=== PATIENT | male | born 1960 | race Caucasian/White ===

== ENCOUNTER 2024-09-16 19:41 | Observation (INO) | payer BC, OTHER, SELFPAY ==
[2024-09-16] VITALS (25 sets, daily range): BP systolic 108–119; BP diastolic 73–99; PULSE 85–169; TEMP 36.5–36.6; O2SAT 89–99; BMI 42.4; BMI 44.4
--- NOTE | 2024-09-16 19:50 | ECG_ITS ---
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
--- NOTE | 2024-09-16 19:59 | ED_ITS ---
HPI - Chest Pain General Chief Complaint: Chest Pain Stated Complaint: Chest Pain Time Seen by Provider: 09/16/24 19:46 Source: patient Mode of arrival: walk-in Limitations: no limitations History of Present Illness HPI narrative: past history of HTN. Presents within the hour with chest pain into his back and flutter in his chest. Pain resolved enroute to the hospital and he has no pain now. felt he was short of breath but he did not think so. No nausea or light headiness. No past history of A. Fib Related Data Home Medications ?Medication ?Instructions ?Recorded ?Confirmed levothyroxine 50 mcg tablet mcg 09/16/24 lisinopril 20 tab 09/16/24 mg-hydrochlorothiazide 12.5 mg tablet omeprazole 40 mg capsule,delayed mg 09/16/24 release semaglutide 2 mg/dose (8 mg/3 mL) mg subcut 09/16/24 subcutaneous pen injector (Ozempic) Allergies Allergy/AdvReac Type Severity Reaction Status Date / Time No Known Drug Allergies Allergy Verified 09/16/24 19:57 Review of Systems ROS Status of ROS 10 or more systems reviewed and unremark able except as noted in history and below PFSH PFSH Social History Little interest or pleasure in doing things: not at all Feeling down, depressed, or hopeless: not at all Exam Constitutional Vital Signs, click to edit/add: Last Vital Signs Temp 97.7 F 09/16/24 19:52 Pulse 147 H 09/16/24 19:52 Resp 18 09/16/24 20:37 BP 119/81 09/16/24 20:19 Pulse Ox 99 09/16/24 19:52 O2 Del Method Room Air 09/16/24 19:52 Common normals: no apparent distress, oriented x3, no limitations, healthy appearing, alert and well nourished [facility] Common normals: normocephalic and head/scalp atraumatic Eye Common normals: EOMs intact bilaterally and conjunctivae normal Respiratory Common normals: normal respiratory effort, no retractions, no use of accessory muscles and clear to auscultation bilaterally Cardio Rate: tachycardic Rhythm: abnormal rhythm GI Common normals: Normal to inspection, nondistended, normoactive bowel sounds present and soft to palpation Extremity Common normals: normal to inspection and full ROM Neuro Common normals: oriented x3, moves all extremities and no focal motor deficits Psych Appearance: grossly normal Course Vital Signs Vital signs: Vital Signs Temperature 97.7 F 09/16/24 19:52 Pulse Rate 147 H 09/16/24 19:52 Respiratory Rate 19 09/16/24 19:52 Blood Pressure 119/81 09/16/24 19:52 Pulse Oximetry 99 09/16/24 19:52 Oxygen Delivery Method Room Air 09/16/24 19:52 Temperature 97.7 F 09/16/24 19:52 Pulse Rate 147 H 09/16/24 19:52 Respiratory Rate 18 09/16/24 20:37 Blood Pressure 119/81 09/16/24 20:19 Pulse Oximetry 99 09/16/24 19:52 Oxygen Delivery Method Room Air 09/16/24 19:52 MDM - Chest Pain MDM Narrative Medical decision making narrative: patient presents with chest pain that radiated into his back. pain was mild. pain resolved before he came to the ED. Found to be in A. fib with RVR. No history of of A. fib. d-dimer and troponin neg. cxray per my preliminary review is neg. Diltiazem bolus and drip ordered and rate decreased from 160s to 90- 110. BP remained WNL. Patient is feeling well. Accepted to step down unit by hospitalist . Hospitalist will order Heparin or Lovenox for patient Lab Data Labs: Lab Results 09/16/24 Range/Units 19:55 WBC 9.3 (4.0-11.0) 10^3/uL RBC 5.31 (4.70-6.10) 10^6/uL Hgb 16.9 (14.0-18.0) g/dL Hct 49.3 (42.0-54.0) % MCV 92.8 (80.0-94.0) fL MCH 31.8 (25.9-34.0) pg MCHC 34.3 (29.9-35.2) g/dL RDW 12.4 (11.0-15.0) % Plt Count 192 (150-450) 10^3/uL MPV 12.0 (9.5-13.5) fL Neut % (Auto) 67.6 (43.0-75.0) % Lymph % (Auto) 19.4 L (20.5-60.0) % [place] % (Auto) 11.2 (1.7-12.0) % Eos % (Auto) 1.0 (0.9-7.0) % Baso % (Auto) 0.5 (0.2-2.0) % Neut # (Auto) 6.3 (1.4-6.5) 10^3/uL Lymph # (Auto) 1.8 (1.2-3.8) 10^3/uL [place] # (Auto) 1.0 H (0.3-0.8) 10^3/uL Eos # (Auto) 0.1 (0.0-0.7) 10^3/uL Baso # (Auto) 0.1 (0.0-0.1) 10^3/uL Abs Immat Gran (auto) 0.03 (0.00-0.03) 10^3/uL Imm/Tot Granulo (auto) 0.3 (0.0-0.5) % D-Dimer 0.46 (<=0.59) mg/L FEU Sodium 137 (136-145) mmol/L Potassium 3.8 (3.5-5.1) mmol/L Chloride 100 (98-107) mmol/L Carbon Dioxide 29.2 (21.0-32.0) mmol/L Anion Gap 11.6 BUN 18.0 (7.0-18.0) mg/dL Creatinine 1.27 (0.70-1.30) mg/dL Est GFR ( Amer) >60 (>=60 mL/min/1.73m^2) Est GFR (Non-Af Amer) 57 L (>=60 mL/min/1.73m^2) BUN/Creatinine Ratio 14.2 Glucose 120 H (74-106) mg/dL Calcium 8.9 (8.5-10.1) mg/dL Troponin I High Sens 4.3 (4.0-76.1) pg/mL NT-Pro-B Natriuret Pep 122.0 (<=900.0) pg/mL Discharge Plan Discharge Chief Complaint: Chest Pain Clinical Impression: New onset atrial fibrillation, Chest pain Patient Disposition: Admitted as Observation
[2024-09-16 20:07] LABS: Basophils Absolute Auto 0.1 10^3/uL (0.0-0.1); Basophils Percent Auto 0.5 % (0.2-2.0); Eosinophils Absolute Auto 0.1 10^3/uL (0.0-0.7); Hematocrit 49.3 % (42.0-54.0); Hemoglobin 16.9 g/dL (14.0-18.0); Immature Granulocytes Abs Auto 0.03 10^3/uL (0.00-0.03); Immature Granulocytes Pct Auto 0.3 % (0.0-0.5); Lymphocytes Absolute Auto 1.8 10^3/uL (1.2-3.8); Lymphocytes Percent Auto 19.4 % (20.5-60.0); Mean Corpuscular HGB Conc 34.3 g/dL (29.9-35.2); Mean Corpuscular Hemoglobin 31.8 pg (25.9-34.0); Mean Corpuscular Volume 92.8 fL (80.0-94.0); Monocytes Percent Auto 11.2 % (1.7-12.0); Neutrophils Absolute Auto 6.3 10^3/uL (1.4-6.5); Neutrophils Percent Auto 67.6 % (43.0-75.0); Platelet Count 192 10^3/uL (150-450); Red Blood Count 5.31 10^6/uL (4.70-6.10); Red Cell Distribution Width 12.4 % (11.0-15.0); White Blood Count 9.3 10^3/uL (4.0-11.0)
[2024-09-16] MEDS: dilTIAZem HCL 125 MG in 0.9 % SODIUM CHLORIDE 100 ML 10 MG IV (20:19)
[2024-09-16] MEDS: DILTIAZEM HCL 25 MG/5 ML VIAL 15 MG IV (20:19)
[2024-09-16 20:30] LABS: Anion Gap 11.6; BUN Creatinine Ratio 14.2; Calcium 8.9 mg/dL (8.5-10.1); Carbon Dioxide 29.2 mmol/L (21.0-32.0); Chloride 100 mmol/L (98-107); Estimated GFR (African America >60 (>=60 mL/min/1.73m^2); Estimated GFR (Non-African Ame 57 (>=60 mL/min/1.73m^2); Glucose 120 mg/dL (74-106); Potassium 3.8 mmol/L (3.5-5.1); Sodium 137 mmol/L (136-145); Troponin I High Sensitivity 4.3 pg/mL (4.0-76.1)
[2024-09-16 21:03] LABS: D Dimer 0.46 mg/L FEU (<=0.59)
[2024-09-16 22:40] LABS: Magnesium 1.9 mg/dL (1.8-2.4)
[2024-09-16 22:41] LABS: Free T4 1.11 ng/dL (0.76-1.46)
[2024-09-17] VITALS (63 sets, daily range): BP systolic 83–126; BP diastolic 57–84; PULSE 75–116; TEMP 36.6–37.2; O2SAT 93–98
[2024-09-17 00:03] LABS: Basophils Absolute Auto 0.1 10^3/uL (0.0-0.1); Basophils Percent Auto 0.6 % (0.2-2.0); Eosinophils Absolute Auto 0.1 10^3/uL (0.0-0.7); Eosinophils Percent Auto 0.9 % (0.9-7.0); Hematocrit 46.8 % (42.0-54.0); Hemoglobin 16.4 g/dL (14.0-18.0); Immature Granulocytes Abs Auto 0.04 10^3/uL (0.00-0.03); Immature Granulocytes Pct Auto 0.4 % (0.0-0.5); Lymphocytes Absolute Auto 1.7 10^3/uL (1.2-3.8); Mean Corpuscular Hemoglobin 32.2 pg (25.9-34.0); Mean Corpuscular Volume 91.9 fL (80.0-94.0); Mean Platelet Volume 12.3 fL (9.5-13.5); Monocytes Absolute Auto 1.4 10^3/uL (0.3-0.8); Monocytes Percent Auto 12.9 % (1.7-12.0); Neutrophils Absolute Auto 7.2 10^3/uL (1.4-6.5); Neutrophils Percent Auto 69.2 % (43.0-75.0); Platelet Count 190 10^3/uL (150-450); Red Blood Count 5.09 10^6/uL (4.70-6.10); Red Cell Distribution Width 12.3 % (11.0-15.0); White Blood Count 10.5 10^3/uL (4.0-11.0)
[2024-09-17 00:19] LABS: INR 1.11; Partial Thromboplastin Time 30.5 sec (22.3-36.2); Prothrombin Time 11.6 sec (9.0-11.6)
[2024-09-17] MEDS: HEPARIN SODIUM,PORCINE/D5W 25,000 UNIT/500 ML IV.SOLN 19.758 UNIT IV (02:25)
[2024-09-17 06:08] LABS: Basophils Absolute Auto 0.1 10^3/uL (0.0-0.1); Basophils Percent Auto 0.6 % (0.2-2.0); Eosinophils Absolute Auto 0.2 10^3/uL (0.0-0.7); Eosinophils Percent Auto 1.8 % (0.9-7.0); Hematocrit 46.5 % (42.0-54.0); Hemoglobin 15.8 g/dL (14.0-18.0); Immature Granulocytes Abs Auto 0.03 10^3/uL (0.00-0.03); Immature Granulocytes Pct Auto 0.4 % (0.0-0.5); Lymphocytes Absolute Auto 2.3 10^3/uL (1.2-3.8); Lymphocytes Percent Auto 26.7 % (20.5-60.0); Mean Corpuscular Hemoglobin 31.4 pg (25.9-34.0); Mean Corpuscular Volume 92.4 fL (80.0-94.0); Mean Platelet Volume 12.2 fL (9.5-13.5); Monocytes Absolute Auto 1.1 10^3/uL (0.3-0.8); Monocytes Percent Auto 12.6 % (1.7-12.0); Neutrophils Absolute Auto 4.9 10^3/uL (1.4-6.5); Neutrophils Percent Auto 57.9 % (43.0-75.0); Platelet Count 171 10^3/uL (150-450); Red Blood Count 5.03 10^6/uL (4.70-6.10); Red Cell Distribution Width 12.5 % (11.0-15.0); White Blood Count 8.5 10^3/uL (4.0-11.0)
[2024-09-17 06:36] LABS: Alanine Aminotransferase 18 U/L (16-63); Albumin Globulin Ratio 0.9; Albumin Level 3.3 g/dL (3.4-5.0); Alkaline Phosphatase 48 U/L (46-116); Anion Gap 11.7; Aspartate Amino Transferase 15 U/L (15-37); BUN Creatinine Ratio 17.2; Bilirubin Total 0.6 mg/dL (0.2-1.0); Calcium 8.6 mg/dL (8.5-10.1); Carbon Dioxide 28.1 mmol/L (21.0-32.0); Chloride 101 mmol/L (98-107); Estimated GFR (African America >60 (>=60 mL/min/1.73m^2); Estimated GFR (Non-African Ame >60 (>=60 mL/min/1.73m^2); Globulin 3.5 g/dL; Glucose 112 mg/dL (74-106); Potassium 3.8 mmol/L (3.5-5.1); Sodium 137 mmol/L (136-145); Total Protein 6.8 g/dL (6.4-8.2)
--- NOTE | 2024-09-17 07:04 | CA_ITS ---
Patient Name: ROBBIN ARTEAGA MR#: [id number] : 1960 Exam Date: 09/17/2024 Ordering Doctor: SHAIKH Dara GUTIERREZ . ECHOCARDIOGRAM REPORT PROCEDURE: CA ECHO DOPPLER COMPLETE INDICATIONS: New onset Afib, hypertension COMPARISON: None. DESCRIPTION: COMPLETE ECHOCARDIOGRAM Real-time transthoracic echocardiography with 2D, M-mode, spectral and color flow Doppler performed. QUALITY: Technical quality was adequate. LEFT VENTRICLE: Normal chamber size. Borderline left ventricular hypertrophy. Normal systolic function. LV EF: Normal left ventricular ejection fraction, (>55%). DIASTOLIC: Not adequately assessed due to heart rhythm. ATRIAL SEPTUM: LEFT ATRIUM: Normal chamber size. RIGHT ATRIUM: Normal chamber size. RIGHT VENTRICLE: Normal chamber size. Normal right ventricular systolic function. TRICUSPID VALVE: Normal mobility and thickness. No stenosis with no regurgitation. MITRAL VALVE: Normal mobility and thickness. No evidence of mitral valve stenosis. There is no mitral annular calcification. No mitral regurgitation. AORTIC VALVE: Normal trileaflet appearance. Thickened aortic valve. Normal leaflet mobility. No evidence of aortic valve stenosis. No aortic regurgitation. AORTIC ROOT: Normal diameter and appearance. PULMONIC VALVE: Not well visualized. No stenosis. No regurgitation. PERICARDIUM: No evidence of pericardial effusion. IVC: IVC is dilated (2.3 cm), does not fully collapse. PLEURA: CONCLUSION: 1. Normal left ventricular size and systolic function. Estimated LVEF is 55 to 60%. 2. Normal right ventricular size and systolic function. 3. No significant valvular dysfunction. 4. The patient appears to be in atrial fibrillation during the exam. Adult Echocardiography Procedure Report Left Ventricle LVEDD (3.7 - 5.6 cm): 4.65 cm LVESD (2.2 - 4.0 cm): 2.67 cm LVIVS thickness (0.6 - 1.2 cm): 1.12 cm LVPW thickness (0.5 - 1.0 cm): 0.93 cm LVOT Max Gradient: 2.04 mm[Hg], 1.22 mm[Hg] LVOT Area (cm2): 0.63 m/s Peak Velocity (LVOT): 0.71 m/s, 0.55 m/s LVOT Diameter 2.07 cm Left Atrium LA Volume Index (2D A2C): 22.92 ml/m2 Left Atrium Systolic Dimension: 3.80 cm Mitral Valve Mitral Valve E-Wave Peak Velocity: 0.61 m/s Right Ventricle Aorta AO Root Diam: 2.96 cm Aortic Valve AoV Area (Peak Telly): 2.45 cm2, 2.84 cm2, 2.24 cm2 Peak Velocity(Antegrade Flow): 0.84 m/s, 0.83 m/s, 0.93 m/s Peak Gradient(Antegrade Flow): 2.85 mm[Hg], 2.75 mm[Hg], 3.49 mm[Hg] Tricuspid Valve Pulmonic Valve Peak Velocity: 0.61 m/s Peak Gradient: 1.22 mm[Hg], 1.74 mm[Hg] Right Atrium Right Atrium Systolic Pressure: 54.16 ml, 54.16 ml Dictated by: Nathan Watkins M.D. on 09/17/2024 at 16:36 Approved by: Nathan Watkins M.D. on 09/17/2024 at 16:38
[2024-09-17] MEDS: LEVOTHYROXINE SODIUM 25 MCG TABLET 50 MCG PO (08:12)
[2024-09-17] MEDS: PANTOPRAZOLE SODIUM 40 MG TABLET.DR PO (08:13)
[2024-09-17] MEDS: METOPROLOL TARTRATE 25 MG TABLET PO ×2 (08:13→22:29)
[2024-09-17 09:20] LABS: PTT Heparin Monitor 33.2 sec (43.5-61.5)
--- NOTE | 2024-09-17 11:18 | CM.NOTE ---
Rounds made with Dr. Wooten, pt will have cardiac echo and cardiology consult today for further recommendations. Dr. Wooten discussed with pt new diagnosis of A-fib and need for P.O Eliquis at discharge. Pt is not rate controlled and off Cardizem drip. Possible discharge this afternoon.
[2024-09-17 11:57] LABS: TSH W/ REFLEX FT4 0.022 uIU/mL (0.358-3.740); Troponin I High Sensitivity 5.5 pg/mL (4.0-76.1)
[2024-09-17 12:21] LABS: Free T4 1.18 ng/dL (0.76-1.46)
--- NOTE | 2024-09-17 12:48 | P.CACN_ITS ---
History of Present Illness History of Present Illness Consult date: 09/17/24 Requesting physician: Shaikh Je Consult reason: chest pain and atrial fibrillation Chief complaint: A-Fib (new) cardizem drip Narrative: 64-year-old man with a history of hypertension, obstructive sleep apnea treated with CPAP, and hypothyroidism on replacement therapy who presented to the hospital with chest discomfort. [facility] AT [facility] Medical History (Updated 09/16/24 @ 22:49 by Mary Garcia) Bleeding ulcer ?K28.4 - Chronic or unspecified gastrojejunal ulcer with hemorrhage (ICD-10) Hypertension ?I10 - Essential (primary) hypertension (ICD-10) Kidney stones ?N20.0 - Calculus of kidney (ICD-10) Surgical History (Updated 09/16/24 @ 22:49 by Mary Garcia) H/O spinal fusion ?Z98.1 - Arthrodesis status (ICD-10) History of cholecystectomy ?Z90.49 - Acquired absence of other specified parts of digestive tract (ICD- 10) Family History (Updated 09/16/24 @ 23:00 by Mary Garcia) Nephew Family history of cancer Grandmother Family history of diabetes mellitus Father Family history of stroke Other Family history of hypertension Social History (Updated 09/16/24 @ 23:01 by Mary Garcia) Within the past year, how often did you have a drink containing alcohol: never Score interpretation: A score less than 4 is consistent with normal alcohol consumption. 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 level of school completed/degree received: Master's degree Are you now , , , , never or living with a partner: In a typical week, how many times do you talk on the telephone with family, friends, or neighbors: 3 or more times per week How often do you get together with friends or relatives: 3 or more times per week How often do you attend mandaeism or jehovah's witness services: never Little interest or pleasure in doing things: not at all Feeling down, depressed, or hopeless: not at all Feel stressed/tense/nervous/anxious/difficulty sleeping: not at all Meds Home Medications and Allergies Home Medications ?Medication ?Instructions ?Recorded ?Confirmed ?Type levothyroxine 50 mcg tablet 50 mcg PO DAILY 09/16/24 0 09/16/24 History lisinopril 20 1 tab PO DAILY 09/16/24 05/0 10/06 History mg-hydrochlorothiazide 12.5 mg tablet omeprazole 40 mg capsule,delayed 40 mg PO DAILY 09/16/24 History release semaglutide 2 mg/dose (8 mg/3 mL) 2 mg subcut .WEEKLY 09/16/24 09/17/24 History subcutaneous pen injector (Ozempic) Allergies Allergy/AdvReac Type Severity Reaction Status Date / Time No Known Drug Allergies Allergy Verified 09/16/24 19:57 Exam Constitutional Vital Signs, click to edit/add: Last Vital Signs Temp 98 F 09/17/24 11:54 Pulse 91 H 09/17/24 11:55 Resp 16 09/17/24 11:54 BP 103/73 09/17/24 11:54 Pulse Ox 96 09/17/24 11:54 O2 Del Method Room Air 09/17/24 11:54 Results Labs and Meds Lab results: Cardiac Enzymes 09/17/24 Range/Units 06:01 AST 15 (15-37) U/L Coagulation 09/16/24 Range/Units 23:50 PT 11.6 (9.0-11.6) sec APTT 30.5 (22.3-36.2) sec CBC 09/16/24 09/16/24 09/17/24 Range/Units 19:55 23:52 06:01 WBC 9.3 10.5 8.5 (4.0-11.0) 10^3/uL RBC 5.31 5.09 5.03 (4.70-6.10) 10^6/uL Hgb 16.9 16.4 15.8 (14.0-18.0) g/dL Hct 49.3 46.8 46.5 (42.0-54.0) % Plt Count 192 190 171 (150-450) 10^3/uL Neut # (Auto) 6.3 7.2 H 4.9 (1.4-6.5) 10^3/uL Lymph # (Auto) 1.8 1.7 2.3 (1.2-3.8) 10^3/uL [place] # (Auto) 1.0 H 1.4 H 1.1 H (0.3-0.8) 10^3/uL Eos # (Auto) 0.1 0.1 0.2 (0.0-0.7) 10^3/uL Baso # (Auto) 0.1 0.1 0.1 (0.0-0.1) 10^3/uL Comprehensive Metabolic Panel 09/16/24 09/17/24 Range/Units 19:55 06:01 Sodium 137 137 (136-145) mmol/L Potassium 3.8 3.8 (3.5-5.1) mmol/L Chloride 100 101 (98-107) mmol/L Carbon Dioxide 29.2 28.1 (21.0-32.0) mmol/L BUN 18.0 16.0 (7.0-18.0) mg/dL Creatinine 1.27 0.93 (0.70-1.30) mg/dL Glucose 120 H 112 H (74-106) mg/dL Calcium 8.9 8.6 (8.5-10.1) mg/dL AST 15 (15-37) U/L ALT 18 (16-63) U/L Alkaline Phosphatase 48 (46-116) U/L Total Protein 6.8 (6.4-8.2) g/dL Albumin 3.3 L (3.4-5.0) g/dL Intake and Output 09/16/24 09/17/24 09/17/24 23:59 07:59 15:59 Intake Total 50.659 / 50.659 187.500 / 187.500 Balance 50.659 / 50.659 187.500 / 187.500 Intake: IV 50.659 / 50.659 187.500 / 187.500 Heparin Sodium,Porcine/D5w 25, 0.659 / 0.659 152.667 / 152.667 000 unit In 500 ml @ 6.6 UNITS/ KG/HR 19.758 mls/hr IV Q24H [facility] Rx#:[id number] dilTIAZem HCL 125 mg In 0.9 % 50 / 50 34.833 / 34.833 Sodium Chloride 100 ml @ 10 MG/ HR 10 mls/hr IV TITR JOL[facility]A Rx#: [id number] Other: Weight 157 kg
--- NOTE | 2024-09-17 12:49 | P.CACN_ITS ---
History of Present Illness History of Present Illness Consult date: 09/17/24 Requesting physician: Shaikh Je Consult reason: chest pain and atrial fibrillation Chief complaint: A-Fib (new) cardizem drip Narrative: 64-year-old with a history of hypertension, obstructive sleep apnea, hypothyroidism on replacement therapy. Presents within the hour with chest pain into his back and flutter in his chest. Pain resolved enroute to the hospital and he has no pain now. felt he was short of breath but he did not think so. No nausea or light headiness. No past history of A. Fib Patient admits to having episodes like this in the past that were not as intense that he did not seek medical attention for. He noted chest discomfort radiating to the interscapular area associated with palpitations. He was found to be in atrial fibrillation with rapid ventricular response. He was started on IV Cardizem drip which helped control his rate however he remains in atrial fibrillation. Anticoagulation was started and a discussion was held regarding discharge and follow-up as an outpatient. When I saw the patient, he was relatively asymptomatic. He still has some ache he describes in the back. He is unaware of palpitations. He denies lightheadedness or dizziness. Past medical history: Hypertension, obstructive sleep apnea, hypothyroidism Social history: Used to drink in his younger years. If he drinks 1 or 2 drinks a month now that his most. He does not smoke. He denies illicit drug use. He denies [id number] decongestions. 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 Family history: His father has a history of atrial fibrillation. Review of Systems ROS Status of ROS 10 or more systems reviewed and unremark able except as noted in history and below [facility] Medical History (Updated 09/17/24 @ 12:58 by Josy Gann MD) Bleeding ulcer ?K28.4 - Chronic or unspecified gastrojejunal ulcer with hemorrhage (ICD-10) Hypertension ?I10 - Essential (primary) hypertension (ICD-10) Kidney stones ?N20.0 - Calculus of kidney (ICD-10) Surgical History (Updated 09/16/24 @ 22:49 by Mary Garcia) H/O spinal fusion ?Z98.1 - Arthrodesis status (ICD-10) History of cholecystectomy ?Z90.49 - Acquired absence of other specified parts of digestive tract (ICD- 10) Family History (Updated 09/16/24 @ 23:00 by Mary Garcia) Nephew Family history of cancer Grandmother Family history of diabetes mellitus Father Family history of stroke Other Family history of hypertension Social History (Updated 09/16/24 @ 23:01 by Mary Garcia) Within the past year, how often did you have a drink containing alcohol: never Score interpretation: A score less than 4 is consistent with normal alcohol consumption. 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 level of school completed/degree received: Master's degree Are you now , , , , never or living with a partner: In a typical week, how many times do you talk on the telephone with family, friends, or neighbors: 3 or more times per week How often do you get together with friends or relatives: 3 or more times per week How often do you attend bahai or confucianism services: never Little interest or pleasure in doing things: not at all Feeling down, depressed, or hopeless: not at all Feel stressed/tense/nervous/anxious/difficulty sleeping: not at all Meds Home Medications and Allergies Home Medications ?Medication ?Instructions ?Recorded ?Confirmed ?Type levothyroxine 50 mcg tablet 50 mcg PO DAILY 09/16/24 0 09/16/24 History lisinopril 20 1 tab PO DAILY 09/16/24 05/10/06 History mg-hydrochlorothiazide 12.5 mg tablet omeprazole 40 mg capsule,delayed 40 mg PO DAILY 09/16/24 History release semaglutide 2 mg/dose (8 mg/3 mL) 2 mg subcut .WEEKLY 09/16/24 09/17/24 History subcutaneous pen injector (Ozempic) Allergies Allergy/AdvReac Type Severity Reaction Status Date / Time No Known Drug Allergies Allergy Verified 09/16/24 19:57 Exam Constitutional Vital Signs, click to edit/add: Last Vital Signs Temp 98 F 09/17/24 11:54 Pulse 91 H 09/17/24 11:55 Resp 16 09/17/24 11:54 BP 103/73 09/17/24 11:54 Pulse Ox 96 09/17/24 11:54 O2 Del Method Room Air 09/17/24 11:54 Documenting provider has reviewed patient's vital signs: yes Common normals: no apparent distress and average body habitus (Obese) General appearance: cooperative (Appears a little agitated with the plan to transfer) and comfortable Nutritional appearance: obese Orientation/consciousness: Yes awake, Yes oriented to person, Yes oriented to place and Yes oriented to time HENMO Common normals: normocephalic Head and scalp: normal to inspection Eye Common normals: EOMs intact bilaterally and conjunctivae normal (Mild conjunctival redness) General eye: normal appearance of both eyes Chest Common normals: inspection of chest normal Respiratory Common normals: normal respiratory effort Effort & inspection: able to speak in complete sentences Auscultation: clear to auscultation bilaterally Cardio Other: Rate and rhythm are irregularly irregular No significant murmurs appreciated Neuro Common normals: oriented x3 Sensorium/orientation: awake, alert, oriented to person, oriented to place and oriented to time Results Labs and Meds Lab results: Cardiac Enzymes 09/17/24 Range/Units 06:01 AST 15 (15-37) U/L Coagulation 09/16/24 Range/Units 23:50 PT 11.6 (9.0-11.6) sec APTT 30.5 (22.3-36.2) sec CBC 09/16/24 09/16/24 09/17/24 Range/Units 19:55 23:52 06:01 WBC 9.3 10.5 8.5 (4.0-11.0) 10^3/uL RBC 5.31 5.09 5.03 (4.70-6.10) 10^6/uL Hgb 16.9 16.4 15.8 (14.0-18.0) g/dL Hct 49.3 46.8 46.5 (42.0-54.0) % Plt Count 192 190 171 (150-450) 10^3/uL Neut # (Auto) 6.3 7.2 H 4.9 (1.4-6.5) 10^3/uL Lymph # (Auto) 1.8 1.7 2.3 (1.2-3.8) 10^3/uL [place] # (Auto) 1.0 H 1.4 H 1.1 H (0.3-0.8) 10^3/uL Eos # (Auto) 0.1 0.1 0.2 (0.0-0.7) 10^3/uL Baso # (Auto) 0.1 0.1 0.1 (0.0-0.1) 10^3/uL Comprehensive Metabolic Panel 09/16/24 09/17/24 Range/Units 19:55 06:01 Sodium 137 137 (136-145) mmol/L Potassium 3.8 3.8 (3.5-5.1) mmol/L Chloride 100 101 (98-107) mmol/L Carbon Dioxide 29.2 28.1 (21.0-32.0) mmol/L BUN 18.0 16.0 (7.0-18.0) mg/dL Creatinine 1.27 0.93 (0.70-1.30) mg/dL Glucose 120 H 112 H (74-106) mg/dL Calcium 8.9 8.6 (8.5-10.1) mg/dL AST 15 (15-37) U/L ALT 18 (16-63) U/L Alkaline Phosphatase 48 (46-116) U/L Total Protein 6.8 (6.4-8.2) g/dL Albumin 3.3 L (3.4-5.0) g/dL Intake and Output 09/16/24 09/17/24 09/17/24 23:59 07:59 15:59 Intake Total 50.659 / 50.659 187.500 / 187.500 Balance 50.659 / 50.659 187.500 / 187.500 Intake: IV 50.659 / 50.659 187.500 / 187.500 Heparin Sodium,Porcine/D5w 25, 0.659 / 0.659 152.667 / 152.667 000 unit In 500 ml @ 6.6 UNITS/ KG/HR 19.758 mls/hr IV Q24H [facility] Rx#:[id number] dilTIAZem HCL 125 mg In 0.9 % 50 / 50 34.833 / 34.833 Sodium Chloride 100 ml @ 10 MG/ HR 10 mls/hr IV TITR [facility] Rx#: [id number] Other: Weight 157 kg Imaging and Cardiology Echo: pending ECG results: report reviewed EKG Interpretation ECG shows: atrial fibrillation Assessment and Plan Assessment and Plan (1) Chest pain: Qualifiers: Chest pain type: unspecified Qualified Code(s): R07.9 - Chest pain, unspecified (2) New onset atrial fibrillation: (3) Hypertension: Qualifiers: Hypertension type: primary hypertension Qualified Code(s): I10 - Essential (primary) hypertension (4) SABIHA (obstructive sleep apnea): (5) Obesity: Qualifiers: Obesity type: unspecified obesity type Obesity classification: adult class 3 (BMI >= 40) Serious obesity comorbidity presence: with serious comorbidity Body mass index: BMI 40.0-44.9 Qualified Code(s): E66.813 - Obesity, class 3; Z68.41 - Body mass index [BMI] 40.0-44.9, adult (6) Hypothyroidism: Qualifiers: Hypothyroidism type: other Qualified Code(s): E03.8 - Other specified hypothyroidism (7) Family history of coronary artery disease: Plan 1. Routine labs; trend troponins, BMP, electrolytes, CBC and correct as feasible 2. A complete echocardiogram has been completed; results pending 3. Continue telemetry 4. Anticoagulation; I would recommend transitioning to IV heparin in anticipation of invasive procedures 5. Rate control; IV Cardizem drip seem to work appropriately, this can be restarted as needed 6. Rhythm control; since this is the first episode of symptomatic, atrial fibrillation, I explained the rationale behind cardioversion. I would recommend transfer to [facility] and a DAMIAN guided cardioversion. We discussed therapeutic options should cardioversion not succeed or the patient reverted back into atrial fibrillation; I described the potential for antiarrhythmic drug therapy plus or minus consideration for ablation in the future. 7. Depending on the results of his echo/DAMIAN, and his symptoms, he may need an ischemic workup. He has a plethora of risk factors for ischemic heart disease. 8. Treat noncardiac comorbidities as clinically appropriate. I had a long discussion with the patient and his explaining my recommendations. Please let us know how we can help facilitate transfer. Thank you for the consult. Josy Gann MD [facility] Cardiovascular Medicine
--- NOTE | 2024-09-17 13:52 | P.HP_ITS ---
HPI H&P: HPI History of Present Illness Chief complaint: A-Fib (new) cardizem drip Narrative: 64-year-old male with past medical history of essential hypertension, sleep apnea presented to ED with midsternal chest discomfort, heart palpitations that started suddenly while he was resting at home. He also noted mild shortness of breath with that. Workup in ED revealed A-fib with RVR. Patient was started on IV Cardizem drip and admitted overnight to stepdown unit. Patient has no known prior history of A-fib. He denies alcohol use, excessive coffee intake, drug use and reports compliance with his CPAP. Upon evaluation in the morning, he was weaned off Cardizem drip and started on p.o. Lopressor. He remains in A-fib but his rate is well-controlled on p.o. Lopressor. Consulted cardiology who recommended [facility] cardioversion for new onset A-fib. Unfortunately, our facility is unable to do cardioversion for which he will need to be transferred out to [facility]. We are waiting for patient to decide and get back to us. Echocardiogram was ordered to assess cardiac structure and is still pending. He denies chest pain, shortness of breath currently. Opioid HPI Opioid Management Most Recent Pain and Opioid Data: Last Pain Scale 0 09/16/24, 20:06 Last Pain Assessment Today, 00:04 Last ED Pain Assessment 09/16/24, 20:06 Last ORT Total Score 0 09/16/24, 23:08 Last ORT Risk Category Low Risk 09/16/24, 23:08 Review of Systems ROS Status of ROS 10 or more systems reviewed and unremark able except as noted in history and below [facility] Medical History (Updated 09/17/24 @ 12:58 by Josy Gann MD) Bleeding ulcer ?K28.4 - Chronic or unspecified gastrojejunal ulcer with hemorrhage (ICD-10) Hypertension ?I10 - Essential (primary) hypertension (ICD-10) Kidney stones ?N20.0 - Calculus of kidney (ICD-10) Surgical History (Updated 09/16/24 @ 22:49 by Mary Garcia) H/O spinal fusion ?Z98.1 - Arthrodesis status (ICD-10) History of cholecystectomy ?Z90.49 - Acquired absence of other specified parts of digestive tract (ICD- 10) Family History (Updated 09/16/24 @ 23:00 by Mary Garcia) Nephew Family history of cancer Grandmother Family history of diabetes mellitus Father Family history of stroke Other Family history of hypertension Social History (Updated 09/16/24 @ 23:01 by Mary Garcia) Within the past year, how often did you have a drink containing alcohol: never Score interpretation: A score less than 4 is consistent with normal alcohol consumption. 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 level of school completed/degree received: Master's degree Are you now , , , , never or living with a partner: In a typical week, how many times do you talk on the telephone with family, friends, or neighbors: 3 or more times per week How often do you get together with friends or relatives: 3 or more times per week How often do you attend sikhism or hindu services: never Little interest or pleasure in doing things: not at all Feeling down, depressed, or hopeless: not at all Feel stressed/tense/nervous/anxious/difficulty sleeping: not at all Meds Home Medications and Allergies Home Medications ?Medication ?Instructions ?Recorded ?Confirmed ?Type levothyroxine 50 mcg tablet 50 mcg PO DAILY 09/16/24 0 09/16/24 History lisinopril 20 1 tab PO DAILY 09/16/24 0510/06 History mg-hydrochlorothiazide 12.5 mg tablet omeprazole 40 mg capsule,delayed 40 mg PO DAILY 09/16/24 History release semaglutide 2 mg/dose (8 mg/3 mL) 2 mg subcut .WEEKLY 09/16/24 09/17/24 History subcutaneous pen injector (Ozempic) Allergies Allergy/AdvReac Type Severity Reaction Status Date / Time No Known Drug Allergies Allergy Verified 09/16/24 19:57 Exam Constitutional Vital Signs, click to edit/add: Last Vital Signs Temp 98 F 09/17/24 11:54 Pulse 91 H 09/17/24 11:55 Resp 16 09/17/24 11:54 BP 103/73 09/17/24 11:54 Pulse Ox 96 09/17/24 11:54 O2 Del Method Room Air 09/17/24 11:54 Documenting provider has reviewed patient's vital signs: yes Common normals: no apparent distress and oriented x3 General appearance: cooperative Nutritional appearance: obese HENMT Common normals: normocephalic and head/scalp atraumatic Head and scalp: normocephalic and atraumatic Eye Common normals: conjunctivae normal and no scleral icterus Conjunctiva: conjunctiva(e) normal Respiratory Common normals: normal respiratory effort and clear to auscultation bilaterally Effort & inspection: able to speak in complete sentences Auscultation: clear to auscultation bilaterally Cardio Common normals: regular rate, S1 normal heart sound and S2 normal heart sound Rate: regular rate Rhythm: abnormal rhythm Heart sounds: S1 normal and S2 normal GI Common normals: Normal to inspection, nondistended, normoactive bowel sounds present, soft to palpation, non-tender and no hepatosplenomegaly Palpation: soft and no hepatosplenomegaly Extremity Common normals: no clubbing, cyanosis or edema Neuro Common normals: oriented x3, moves all extremities and no focal motor deficits Psych Common normals: mental status grossly normal, denies hallucinations, denies homicidal ideation and denies suicidal ideation Results Labs Labs: Short CBC 09/16/24 09/16/24 09/17/24 Range/Units 19:55 23:52 06:01 WBC 9.3 10.5 8.5 (4.0-11.0) 10^3/uL Hgb 16.9 16.4 15.8 (14.0-18.0) g/dL Hct 49.3 46.8 46.5 (42.0-54.0) % Plt Count 192 190 171 (150-450) 10^3/uL BMP 09/16/24 09/17/24 19:55 06:01 Sodium 137 137 Potassium 3.8 3.8 Chloride 100 101 Carbon Dioxide 29.2 28.1 BUN 18.0 16.0 Creatinine 1.27 0.93 Glucose 120 H 112 H Calcium 8.9 8.6 Liver Function 09/17/24 Range/Units 06:01 Total Bilirubin 0.6 (0.2-1.0) mg/dL AST 15 (15-37) U/L ALT 18 (16-63) U/L Alkaline Phosphatase 48 (46-116) U/L Albumin 3.3 L (3.4-5.0) g/dL Assessment and Plan Assessment and Plan (1) Chest pain: Assessment and Plan: Likely due to Rapid afib. Resolved. Trop negative. ECHO pending. Qualifiers: Chest pain type: unspecified Qualified Code(s): R07.9 - Chest pain, unspecified (2) New onset atrial fibrillation: Assessment and Plan: New onset Afib. Rate controlled now. Cardizem drip as needed. Started on PO Lopressor. ECHO pending. (3) Hypertension: Assessment and Plan: Hold HCTZ/Lisinopril for now Qualifiers: Hypertension type: primary hypertension Qualified Code(s): I10 - Essential (primary) hypertension (4) SABIHA (obstructive sleep apnea): Assessment and Plan: Reports compliance with CPAP (5) Obesity: Assessment and Plan: on Ozempic for weight loss. Qualifiers: Obesity type: unspecified obesity type Obesity classification: adult class 3 (BMI >= 40) Serious obesity comorbidity presence: with serious comorbidity Body mass index: BMI 40.0-44.9 Qualified Code(s): E66.813 - Obesity, class 3; Z68.41 - Body mass index [BMI] 40.0-44.9, adult (6) Hypothyroidism: Assessment and Plan: TSH low, indicating levothyroxine dose is too high for him. Switch to 25 mcg daily. Qualifiers: Hypothyroidism type: other Qualified Code(s): E03.8 - Other specified hypothyroidism (7) Family history of coronary artery disease: Assessment and Plan: Decision to pursue work up for underlying ischemic heart disease as inpatient based on ECHO. Plan cw Lopressor for Afib. Off of cardizem drip, will use as needed. IV heparin for stroke px. Cardiology recommending transfer to [facility] for [facility] Cardioversion. Patient thinking over it. ECHO read pending.
[2024-09-17] MEDS: HEPARIN SODIUM,PORCINE/D5W 25,000 UNIT/500 ML IV.SOLN 20 UNIT IV (15:01)
--- NOTE | 2024-09-17 18:08 | PC.NURSE ---
transfer center contacted regarding status of transfer. State that pt was accepted and that bed will be assigned after shift change at 7p
[2024-09-17] MEDS: FUROSEMIDE 40 MG/4 ML VIAL IVP (18:16)
[2024-09-17 22:14] LABS: Magnesium 1.7 mg/dL (1.8-2.4)
--- NOTE | 2024-09-17 23:07 | ECG_ITS ---
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 Measurements Intervals Doyle Rate: 91 P: 51 DE: 204 QRS: -25 QRSD: 80 T: 50 QT: 346 QTc: 395 Interpretive Statements 1100 Sinus rhythm 4068 Nonspecific Twave abnormality 7202 Moderate left axis deviation 8102 Low QRS voltage in chest leads 0104 ELECTRODE(S) DETACHED ... Repeat ECG is requested 9130 borderline ECG Compared to ECG 09/16/2024 19:49:36 Low QRS voltage now present Atrial fibrillation no longer present ST (T wave) deviation no longer present Possible ischemia no longer present Electronically Signed On 09-18-2024 7:40:07 EDT by MIHIR FERNÁNDEZ M.D.
[2024-09-18] VITALS: PULSE 87
[2024-09-18 02:00] VITALS: PULSE 72; PULSE 83
== END 2024-09-18 03:05 | disposition short-term general hospital (02) ==
LOC: ER 21:17 → MS 09-17 11:18
PROVIDERS: Registered Nurse; Admitting Provider Internal Medicine; Emergency Provider Internal Medicine; PCP Family Medicine; Visit Provider Internal Medicine
DX: I48.91 Unspecified atrial fibrillation (principal); R07.9 Chest pain, unspecified; I10 Essential (primary) hypertension; G47.30 Sleep apnea, unspecified; R06.02 Shortness of breath; Z90.49 Acquired absence of other specified parts of digestive tract; Z98.1 Arthrodesis status; E66.9 Obesity, unspecified; G47.33 Obstructive sleep apnea (adult) (pediatric); E66.813 Obesity, class 3; Z68.41 Body mass index [BMI] 40.0-44.9, adult; Z79.890 Hormone replacement therapy; E03.8 Other specified hypothyroidism; Z82.49 Family history of ischemic heart disease and other diseases of the circulatory system
CPT/HCPCS: 36415; 71045; 80048; 80053; 82947; 83735; 83880; 84439; 84443; 84484; 85025; 85378; 85610; 85730; 93005; 93306; 94667; 94668; 94761; 96365; 96366; 96367; 96368; 96375; 96376; 99285; G0378; J1644; J1938